=== PATIENT | female | born 1990 | race Asian ===

== ENCOUNTER 2024-05-13 07:34 | Inpatient (IN) ==
[2024-05-13] MEDS ORDERED: LIDOCAINE 1% LOCAL 20 ML VIAL INFIL PRN (09:03)
[2024-05-13] MEDS ORDERED: CALCIUM CARBONATE 500 MG CHEWABLE TAB PO PRN (09:03)
--- NOTE | 2024-05-13 09:41 | History & Physical Report ---
Date of Service May 13, 2024 Assessment & Plan (1) Encounter for induction of labor: (2) Post-dates : Plan admit, iv, labs, start pit. fhts categ 1. Admission and Anticipated Discharge Date Admission Date: May 13, 2024 History of Present Illness Chief Complaint: planned induction Primary Care Provider: Katerin Bolanos MD 33yo at 40+wks ega for planned induction of labor due to postdates. No rom, no vb. +FM. No ctx. PNC c/b 1. postdates 2. cx polyp noted at NOB PNL rh pos, ri, gbs neg OBH: g1 GYNH: nl paps, no stds. Allergies Allergy/AdvReac Type Severity Reaction Status Date / Time No Known Allergies Allergy Verified 05/09/24 10:39 Home Medications Medication Instructions Recorded Confirmed Type cholecalciferol (vitamin D3) 25 25 mcg PO DAILY 09/21/23 05/09/24 History mcg (1,000 unit) tablet vit 168-iron 27 mg-folic 1 cap PO DAILY #30 caps 10/09/23 05/09/24 Rx acid 800 mcg-omega3 235 mg capsule (One-A-Day -1) calcium carbonate (Calcium 600) 600 mg PO DAILY 03/13/24 05/09/24 History ferrous sulfate 325 mg (65 mg 325 mg PO DAILY 03/13/24 05/09/24 History iron) tablet (iron) inulin 2 gram chewable tablet 2 g PO DAILY 03/13/24 05/09/24 History (Fiber Gummies) polyethylene glycol 3350 17 17 g PO DAILY PRN Constipation 03/13/24 05/09/24 History gram/dose oral powder (Miralax) Breast Pump #1 ea 05/02/24 05/09/24 Rx Patient History Medical History Constipation Family History (Updated 09/21/23 @ 09:55 by Casie English) Grandmother (Maternal) Diabetes Hypertension Dyslipidemia Social History Smoking Status: Never smoker Second Hand Exposure: No; Do You Dip or Chew Tobacco: No; Hx Alcohol Use: No Hx Substance Use: No Preferred Language: Indonesian Communication Ability: Effective 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 current occupational status: employed current occupation: scientist electronics Feels Safe at Home: Yes Assistive Devices: None Review of Systems as per Subjective / HPI Physical Exam Constitutional: WD/WN, vitals as above Respiratory: normal respiratory effort, lungs clear to auscultation Cardiovascular: Rate/Rhythm: regular rate and regular rhythm Gastrointestinal (Abdomen): soft gravid nt efw 7-8# Musculoskeletal: no edema nontender calves Neurologic: grossly normal Psychiatric: A+Ox3, euthymic affect Genitourinary: Manual OB Exam: + cervical dilation 5 cm, + cervical effacement 60%, + station -2 and + amniotic fluid (arom) clear OB Exam Monitor Tracing: + external FHT monitor used, + external uterine monitor used (irreg), + category I and + normal FHT variability Results & Data Vital Signs (Past 12 Hours) Vital Signs Temp Pulse Resp BP 05/13/24 08:04 97.9 F 90 18 108/74 05/13/24 07:48 97.9 F 90 18 108/74 Coding Level of Care Code None Diagnoses Encounter for induction of labor Z34.90 Post-dates O48.0
[2024-05-13] MEDS: LACTATED RINGER'S 1,000 ML IV PRN (09:42)
[2024-05-13 09:44] LABS: Hematocrit (blood only) 35.1 % (37.0-47.0); Hemoglobin 11.7 g/dl (12.0-16.0); Mean Corpuscular Hemoglobin 31.8 pg (25.0-34.0); Mean Corpuscular Hgb Conc 33.3 g/dL (32.0-36.0); Mean Corpuscular Volume 95.4 fL (80.0-100.0); Mean Platelet Volume 10.8 fL (9.4-12.4); Platelet Count 143 K/uL (130-400); RDW Coefficient of Variation 14.2 % (11.5-14.5); RDW Standard Deviation 49.7 fL (36.4-46.3); Red Blood Count 3.68 M/uL (4.20-5.40); White Blood Count 6.83 K/ul (4.8-10.8)
[2024-05-13] MEDS ORDERED: fentaNYL citrate PF 100 MCG/2 ML VIAL EPI PRN (10:15)
[2024-05-13] MEDS ORDERED: ONDANSETRON INJ 2 MG/ML 2 ML VIAL IV PRN (10:15)
[2024-05-13] MEDS ORDERED: NALOXONE HCL 0.4 MG/1 ML VIAL/CARP IV PRN (10:15)
[2024-05-13] MEDS ORDERED: SODIUM CHLORIDE 0.9% PF INJ 10 ML VIAL EPI PRN (10:15)
[2024-05-13] MEDS ORDERED: ePHEDrine sulfate 50 MG/ML AMP IV PRN (10:15)
[2024-05-13] MEDS ORDERED: NALBUPHINE HCL 5 MG in SYRINGE 0 ML IV PRN (10:15)
[2024-05-13] MEDS ORDERED: LIDOCAINE 2% MPF LOCAL 5 ML VIAL EPI PRN (10:15)
[2024-05-13] MEDS ORDERED: NALOXONE HCL 1 MG in SODIUM CHLORIDE 0.9% 1,000 ML IV PRN (10:15)
[2024-05-13] MEDS ORDERED: ROPIVACAINE 0.5% PF 5 MG/ML 20 ML VIAL EPI PRN (10:15)
[2024-05-13] MEDS ORDERED: diphenhydrAMINE 50 MG/ML VIAL IV PRN (10:15)
[2024-05-13] MEDS ORDERED: BUPIVACAINE 0.25% PF 30 ML VIAL EPI PRN (10:15)
--- NOTE | 2024-05-13 10:16 | Anesthesiology Consultation ---
Date of Service May 13, 2024 Assessment & Plan (1) Encounter for pre-operative examination: Chart Review Chart Review: Patient NOT seen in Pre Admission Testing and Acceptable Risk for Labor Epidural Consults Requested none History Height/Weight Height: 5 ft 7 in Weight: 80.931 kg Allergies Allergy/AdvReac Type Severity Reaction Status Date / Time No Known Allergies Allergy Verified 05/09/24 10:39 Medications Home Medications Medication Instructions Recorded Confirmed Last Taken cholecalciferol (vitamin D3) 25 25 mcg PO DAILY 09/21/23 05/09/24 03/12/24 mcg (1,000 unit) tablet vit 168-iron 27 mg-folic 1 cap PO DAILY #30 caps 10/09/23 05/09/24 03/12/24 acid 800 mcg-omega3 235 mg capsule (One-A-Day -1) calcium carbonate (Calcium 600) 600 mg PO DAILY 03/13/24 05/09/24 03/12/24 ferrous sulfate 325 mg (65 mg 325 mg PO DAILY 03/13/24 05/09/24 03/12/24 iron) tablet (iron) inulin 2 gram chewable tablet 2 g PO DAILY 03/13/24 05/09/24 03/12/24 (Fiber Gummies) polyethylene glycol 3350 17 17 g PO DAILY PRN Constipation 03/13/24 05/09/24 Unknown gram/dose oral powder (Miralax) Breast Pump #1 ea 05/02/24 05/09/24 Unknown Active Medications Generic Name Dose Route Start Last Admin Trade Name Freq PRN Reason Stop Dose Admin Lactated Ringer's 1,000 mls @ 125 mls/hr 05/13/24 09:03 05/13/24 09:42 Lr IV 05/15/24 09:02 999 mls/hr .Q8H PRN Administration L&D Protocol Protocol Past Medical History Medical History (Updated 05/13/24 @ 10:16 by Russell Argueta MD) Encounter for pre-operative examination Post-dates Exercise / Class Metabolic Activity II 4-5 Yardwork/Stairs/Walk up hill Past Family History Family History Grandmother (Maternal) Diabetes Hypertension Dyslipidemia Social History Smoking Status: Never smoker Do You Dip or Chew Tobacco: No Hx Alcohol Use: No Hx Substance Use: No substance use type: does not use Physical Exam Vital Signs Last Vital Signs Temp 36.6 C 05/13/24 08:04 Pulse 100 H 05/13/24 10:34 Resp 18 05/13/24 08:04 BP 125/74 05/13/24 10:34 Pulse Ox 96 05/13/24 10:33 Testing Laboratory Results 05/13/24 09:18
[2024-05-13] MEDS: BUPIVACAINE 0.25% PF 30 ML VIAL ONE (10:33)
[2024-05-13] MEDS: fentaNYL citrate PF 100 MCG/2 ML VIAL ONE (10:37)
[2024-05-13] MEDS: LIDOCAINE 2%/EPINEPHRINE 1:200,000 20 ML PF ONE (10:37)
[2024-05-13] MEDS: fentANYL 2 MCG/ML BUPIVacaine 0.125%-NSS 100ML BAG EPI PRN (10:41)
[2024-05-13] MEDS: OXYTOCIN 30 UNITS/NSS 30 UNITS/500 ML BAG IV PRN ×2 (11:22→20:13)
[2024-05-13] MEDS: BUPIVACAINE 0.25% PF 30 ML VIAL EPI STA (15:21)
[2024-05-13] MEDS: SODIUM CHLORIDE 0.9% PF INJ 10 ML VIAL ONE (15:21)
[2024-05-13] MEDS: ePHEDrine sulfate 50 MG/ML AMP ONE (15:21)
[2024-05-13] MEDS: fentANYL 2 MCG/ML BUPIVacaine 0.125%-NSS 100ML BAG ONE (15:21)
[2024-05-13] MEDS: LIDOCAINE 2%/EPINEPHRINE 1:200,000 20 ML PF EPI STA (15:22)
[2024-05-13] MEDS: fentaNYL citrate PF 100 MCG/2 ML VIAL EPI STA (15:22)
[2024-05-13] MEDS: SODIUM CHLORIDE 0.9% PF INJ 10 ML VIAL EPI STA (15:23)
[2024-05-13] MEDS ORDERED: AMPICILLIN SOD 1 GM VIAL IV ONE (16:28)
--- NOTE | 2024-05-13 16:32 | Labor Progress Brief Note ---
Date of Service May 13, 2024 Subjective pt with epidural. Assessment & Plan (1) Encounter for induction of labor: (2) 40 weeks gestation of : (3) Maternal fever during labor: Plan: temp elevated and fhts as noted. will give tylenol now and plan amp. unclear if true intraamniotic infection, no odor of fluid and arom only about 7hr ago. will continue to monitor. Plan will c/w pit. fhts noted. Admission and Anticipated Discharge Date Admission Date: May 13, 2024 Physical Exam Constitutional: WD/WN, vitals as above Genitourinary: Manual OB Exam: + cervical dilation (8.5cm per nurse) OB Exam Monitor Tracing: + external FHT monitor used (160-165), + external uterine monitor used (q2, pit at 5. ) and + category I (minimal variability. ) no foul odor of fluid noted. Results & Data Vital Signs (Past 12 Hours) Vital Signs Temp Pulse Resp BP Pulse Ox 05/13/24 16:28 111 H 112/56 L 99 05/13/24 16:23 109 H 99 05/13/24 16:21 100.4 F H 05/13/24 16:19 110 H 114/57 L 05/13/24 16:18 110 H 99 05/13/24 16:13 103 H 97 05/13/24 16:11 109 H 89 L 05/13/24 16:08 106 H 128/85 98 05/13/24 16:03 111 H 100 05/13/24 15:58 115 H 108/59 L 100 05/13/24 15:53 110 H 100 05/13/24 15:49 101 H 116/58 L 05/13/24 15:48 103 H 100 05/13/24 15:43 113 H 99 05/13/24 15:38 98 H 97 05/13/24 15:37 100.0 F H 98 H 19 119/71 05/13/24 15:33 107 H 95 05/13/24 15:28 102 H 98 05/13/24 15:27 98 H 121/66 05/13/24 15:23 104 H 98 05/13/24 15:18 99 H 98 05/13/24 15:17 95 H 118/70 05/13/24 15:13 89 99 05/13/24 15:08 98 H 98 05/13/24 15:07 96 H 117/70 05/13/24 15:03 90 98 05/13/24 14:59 104 H 113/67 05/13/24 14:58 101 H 98 05/13/24 14:53 94 H 99 05/13/24 14:51 99 H 91 05/13/24 14:48 94 H 100 05/13/24 14:47 90 118/72 05/13/24 14:43 89 99 05/13/24 14:38 89 100 05/13/24 14:37 86 121/65 05/13/24 14:33 95 H 100 05/13/24 14:28 88 99 05/13/24 14:25 104 H 93 05/13/24 14:23 103 H 97 05/13/24 14:18 101 H 99 05/13/24 14:13 79 99 05/13/24 14:08 77 99 05/13/24 14:07 73 111/65 05/13/24 14:03 77 98 05/13/24 13:58 78 98 05/13/24 13:57 76 113/68 05/13/24 13:53 79 99 05/13/24 13:48 86 109/67 99 05/13/24 13:43 75 99 05/13/24 13:38 99 05/13/24 13:38 78 05/13/24 13:38 77 100/59 L 05/13/24 13:33 77 98 05/13/24 13:28 73 100 05/13/24 13:27 70 104/59 L 05/13/24 13:23 74 99 05/13/24 13:18 72 99 05/13/24 13:17 69 100/57 L 05/13/24 13:13 72 98 05/13/24 13:09 76 97/54 L 05/13/24 13:08 84 97 05/13/24 13:03 72 97 05/13/24 12:58 97 05/13/24 12:58 72 05/13/24 12:58 71 110/60 05/13/24 12:53 73 97 05/13/24 12:48 74 98 05/13/24 12:47 68 108/56 L 05/13/24 12:43 71 97 05/13/24 12:38 71 96 05/13/24 12:37 69 112/66 05/13/24 12:33 77 97 05/13/24 12:30 16 05/13/24 12:30 98.2 F 16 05/13/24 12:28 72 95 05/13/24 12:27 71 108/62 05/13/24 12:23 74 97 05/13/24 12:18 71 98 05/13/24 12:13 83 98 05/13/24 12:08 72 96 05/13/24 12:07 66 98/56 L 05/13/24 12:03 72 98 05/13/24 11:58 97 05/13/24 11:58 71 05/13/24 11:58 72 106/64 05/13/24 11:53 73 97 05/13/24 11:48 77 97 05/13/24 11:47 80 106/60 05/13/24 11:43 71 97 05/13/24 11:38 79 98/55 L 97 05/13/24 11:33 72 97 05/13/24 11:28 82 98 05/13/24 11:27 74 103/60 05/13/24 11:23 82 97 05/13/24 11:18 85 96 05/13/24 11:16 74 101/59 L 05/13/24 11:13 85 97 05/13/24 11:11 71 100/58 L 05/13/24 11:08 76 96 05/13/24 11:07 74 100/58 L 05/13/24 11:03 78 95 05/13/24 11:02 79 104/57 L 05/13/24 10:58 85 96 05/13/24 10:55 81 116/59 L 05/13/24 10:53 91 H 114/59 L 97 05/13/24 10:51 78 113/64 05/13/24 10:49 83 116/64 05/13/24 10:48 82 96 05/13/24 10:47 88 108/62 05/13/24 10:45 83 117/68 05/13/24 10:43 84 112/68 97 05/13/24 10:41 88 130/71 05/13/24 10:39 87 119/70 05/13/24 10:38 82 96 05/13/24 10:37 93 H 119/70 07/22/24 10:34 100 H 125/74 05/13/24 10:33 100 H 96 05/13/24 10:28 91 H 98 05/13/24 10:23 85 97 05/13/24 10:18 79 97 05/13/24 10:13 82 97 05/13/24 10:08 87 97 05/13/24 08:04 97.9 F 90 18 108/74 05/13/24 07:48 97.9 F 90 18 108/74 Coding Level of Care Code None Diagnoses Encounter for induction of labor Z34.90 40 weeks gestation of Z3A.40 Maternal fever during labor O75.2
[2024-05-13] MEDS: ACETAMINOPHEN 500 MG TAB PO STA (16:37)
[2024-05-13] MEDS: AMPICILLIN 2,000 MG in SODIUM CHLOR 0.9% MINI-B 100 ML IV STA (16:51)
--- NOTE | 2024-05-13 16:57 | Labor Progress Brief Note ---
Date of Service May 13, 2024 Subjective pt comfortable. discussed fever in labor and goals to have pt deliver Assessment & Plan (1) 40 weeks gestation of : (2) Encounter for induction of labor: (3) Maternal fever during labor: Plan will plan 2nd stage soon, empty bladder and then attempt pushing. at first can feel small lip but exam during ctx and cephalic comes down to +2 station at least. did d/w pt and partner goals with maternal fever, ie. delivery. they ask about possible nicu need but that is unpredictable. currently minimal variability despite ivf bolus but categ 1. amp infusing. Admission and Anticipated Discharge Date Admission Date: May 13, 2024 Physical Exam Constitutional: WD/WN, vitals as above Genitourinary: Manual OB Exam: + cervical dilation 10 cm (with ctx), + cervical effacement 100% and + station + 2 (+3 with ctx) OB Exam Monitor Tracing: + external FHT monitor used, + external uterine monitor used (q2 pit at 5) and + category I Results & Data Vital Signs (Past 12 Hours) Vital Signs Temp Pulse Resp BP Pulse Ox 05/13/24 16:48 99 05/13/24 16:48 110 H 05/13/24 16:48 108 H 109/55 L 05/13/24 16:43 104 H 100 05/13/24 16:38 105 H 99 05/13/24 16:37 110 H 102/56 L 05/13/24 16:33 111 H 99 05/13/24 16:28 111 H 112/56 L 99 05/13/24 16:23 109 H 99 05/13/24 16:21 100.4 F H 05/13/24 16:19 110 H 114/57 L 05/13/24 16:18 110 H 99 05/13/24 16:13 103 H 97 05/13/24 16:11 109 H 89 L 05/13/24 16:08 106 H 128/85 98 05/13/24 16:03 111 H 100 05/13/24 15:58 115 H 108/59 L 100 05/13/24 15:53 110 H 100 05/13/24 15:49 101 H 116/58 L 05/13/24 15:48 103 H 100 05/13/24 15:43 113 H 99 05/13/24 15:38 98 H 97 05/13/24 15:37 100.0 F H 98 H 19 119/71 05/13/24 15:33 107 H 95 05/13/24 15:28 102 H 98 05/13/24 15:27 98 H 121/66 05/13/24 15:23 104 H 98 05/13/24 15:18 99 H 98 05/13/24 15:17 95 H 118/70 05/13/24 15:13 89 99 05/13/24 15:08 98 H 98 05/13/24 15:07 96 H 117/70 05/13/24 15:03 90 98 05/13/24 14:59 104 H 113/67 05/13/24 14:58 101 H 98 05/13/24 14:53 94 H 99 05/13/24 14:51 99 H 91 05/13/24 14:48 94 H 100 05/13/24 14:47 90 118/72 05/13/24 14:43 89 99 05/13/24 14:38 89 100 05/13/24 14:37 86 121/65 05/13/24 14:33 95 H 100 05/13/24 14:28 88 99 05/13/24 14:25 104 H 93 05/13/24 14:23 103 H 97 05/13/24 14:18 101 H 99 05/13/24 14:13 79 99 05/13/24 14:08 77 99 05/13/24 14:07 73 111/65 05/13/24 14:03 77 98 05/13/24 13:58 78 98 05/13/24 13:57 76 113/68 05/13/24 13:53 79 99 05/13/24 13:48 86 109/67 99 05/13/24 13:43 75 99 05/13/24 13:38 99 05/13/24 13:38 78 05/13/24 13:38 77 100/59 L 05/13/24 13:33 77 98 05/13/24 13:28 73 100 05/13/24 13:27 70 104/59 L 05/13/24 13:23 74 99 05/13/24 13:18 72 99 05/13/24 13:17 69 100/57 L 05/13/24 13:13 72 98 05/13/24 13:09 76 97/54 L 05/13/24 13:08 84 97 05/13/24 13:03 72 97 05/13/24 12:58 97 05/13/24 12:58 72 05/13/24 12:58 71 110/60 05/13/24 12:53 73 97 05/13/24 12:48 74 98 05/13/24 12:47 68 108/56 L 05/13/24 12:43 71 97 05/13/24 12:38 71 96 05/13/24 12:37 69 112/66 05/13/24 12:33 77 97 05/13/24 12:30 16 05/13/24 12:30 98.2 F 16 05/13/24 12:28 72 95 05/13/24 12:27 71 108/62 05/13/24 12:23 74 97 05/13/24 12:18 71 98 05/13/24 12:13 83 98 05/13/24 12:08 72 96 05/13/24 12:07 66 98/56 L 05/13/24 12:03 72 98 05/13/24 11:58 97 05/13/24 11:58 71 05/13/24 11:58 72 106/64 05/13/24 11:53 73 97 05/13/24 11:48 77 97 05/13/24 11:47 80 106/60 05/13/24 11:43 71 97 05/13/24 11:38 79 98/55 L 97 05/13/24 11:33 72 97 05/13/24 11:28 82 98 05/13/24 11:27 74 103/60 05/13/24 11:23 82 97 05/13/24 11:18 85 96 05/13/24 11:16 74 101/59 L 05/13/24 11:13 85 97 05/13/24 11:11 71 100/58 L 05/13/24 11:08 76 96 05/13/24 11:07 74 100/58 L 05/13/24 11:03 78 95 05/13/24 11:02 79 104/57 L 05/13/24 10:58 85 96 05/13/24 10:55 81 116/59 L 05/13/24 10:53 91 H 114/59 L 97 05/13/24 10:51 78 113/64 05/13/24 10:49 83 116/64 05/13/24 10:48 82 96 05/13/24 10:47 88 108/62 05/13/24 10:45 83 117/68 05/13/24 10:43 84 112/68 97 05/13/24 10:41 88 130/71 05/13/24 10:39 87 119/70 05/13/24 10:38 82 96 05/13/24 10:37 93 H 119/70 05/13/24 10:34 100 H 125/74 05/13/24 10:33 100 H 96 05/13/24 10:28 91 H 98 05/13/24 10:23 85 97 05/13/24 10:18 79 97 05/13/24 10:13 82 97 05/13/24 10:08 87 97 05/13/24 08:04 97.9 F 90 18 108/74 05/13/24 07:48 97.9 F 90 18 108/74 Coding Level of Care Code None Diagnoses 40 weeks gestation of Z3A.40 Encounter for induction of labor Z34.90 Maternal fever during labor O75.2
[2024-05-13] MEDS ORDERED: GENTAMICIN CONSULT ACTIVE PRN (17:30)
[2024-05-13] MEDS: GENTAMICIN SULFATE 400 MG in DEXTROSE 5% 100 ML IV SCH (18:12)
--- NOTE | 2024-05-13 18:38 | Labor Progress Brief Note ---
Date of Service May 13, 2024 Subjective pushing effectively Assessment & Plan (1) 40 weeks gestation of : (2) Encounter for induction of labor: (3) Maternal fever during labor: Plan: added gent. unlikely chorio but treating as presumed. Plan making good progress in 2nd stage. nursery aware of tachy and maternal temp to relay to peds. Admission and Anticipated Discharge Date Admission Date: May 13, 2024 Physical Exam Constitutional: WD/WN, vitals as above Genitourinary: Manual OB Exam: + cervical dilation 10 cm, + cervical effacement 100% and + station + 3 OB Exam Monitor Tracing: + external FHT monitor used (baseline 175, variability normal ), + external uterine monitor used (q2, decreased pit to 2), + category I (+scalp stim response) and + normal FHT variability Results & Data Vital Signs (Past 12 Hours) Vital Signs Temp Pulse Resp BP Pulse Ox 05/13/24 18:30 145 H 96 05/13/24 18:27 166 H 105/64 05/13/24 18:25 145 H 97 05/13/24 18:23 146 H 81 L 05/13/24 18:20 136 H 93 05/13/24 18:15 136 H 96 05/13/24 18:10 148 H 87 L 05/13/24 18:08 129 H 108/53 L 05/13/24 18:05 132 H 79 L 05/13/24 18:04 169 H 83 L 05/13/24 18:00 142 H 89 L 05/13/24 17:59 137 H 115/56 L 05/13/24 17:58 181 H 184/107 H 05/13/24 17:57 144 H 88 L 05/13/24 17:55 133 H 89 L 05/13/24 17:51 143 H 87 L 05/13/24 17:49 132 H 93 05/13/24 17:47 146 H 107/58 L 05/13/24 17:44 125 H 93 05/13/24 17:38 139 H 106/53 L 93 05/13/24 17:35 138 H 82 L 05/13/24 17:33 124 H 93 05/13/24 17:29 137 H 87 L 05/13/24 17:28 91 05/13/24 17:28 133 H 05/13/24 17:28 131 H 104/50 L 05/13/24 17:25 22 05/13/24 17:25 101.8 F H 22 05/13/24 17:23 132 H 94 05/13/24 17:18 139 H 95 05/13/24 17:17 118 H 106/51 L 05/13/24 17:16 139 H 83 L 05/13/24 17:13 127 H 97 05/13/24 17:11 127 H 94 05/13/24 17:08 121 H 97 05/13/24 17:07 116 H 127/60 05/13/24 17:03 125 H 96 05/13/24 16:58 124 H 99 05/13/24 16:57 112 H 111/58 L 05/13/24 16:53 114 H 99 05/13/24 16:48 99 05/13/24 16:48 110 H 05/13/24 16:48 108 H 109/55 L 05/13/24 16:43 104 H 100 05/13/24 16:38 105 H 99 05/13/24 16:37 110 H 102/56 L 05/13/24 16:33 111 H 99 05/13/24 16:28 111 H 112/56 L 99 05/13/24 16:23 109 H 99 05/13/24 16:21 100.4 F H 05/13/24 16:19 110 H 114/57 L 05/13/24 16:18 110 H 99 05/13/24 16:13 103 H 97 05/13/24 16:11 109 H 89 L 05/13/24 16:08 106 H 128/85 98 05/13/24 16:03 111 H 100 05/13/24 15:58 115 H 108/59 L 100 05/13/24 15:53 110 H 100 05/13/24 15:49 101 H 116/58 L 05/13/24 15:48 103 H 100 05/13/24 15:43 113 H 99 05/13/24 15:38 98 H 97 05/13/24 15:37 100.0 F H 98 H 19 119/71 05/13/24 15:33 107 H 95 05/13/24 15:28 102 H 98 05/13/24 15:27 98 H 121/66 05/13/24 15:23 104 H 98 05/13/24 15:18 99 H 98 05/13/24 15:17 95 H 118/70 05/13/24 15:13 89 99 05/13/24 15:08 98 H 98 05/13/24 15:07 96 H 117/70 05/13/24 15:03 90 98 05/13/24 14:59 104 H 113/67 05/13/24 14:58 101 H 98 05/13/24 14:53 94 H 99 05/13/24 14:51 99 H 91 05/13/24 14:48 94 H 100 05/13/24 14:47 90 118/72 05/13/24 14:43 89 99 05/13/24 14:38 89 100 05/13/24 14:37 86 121/65 05/13/24 14:33 95 H 100 05/13/24 14:28 88 99 05/13/24 14:25 104 H 93 05/13/24 14:23 103 H 97 05/13/24 14:18 101 H 99 05/13/24 14:13 79 99 05/13/24 14:08 77 99 05/13/24 14:07 73 111/65 05/13/24 14:03 77 98 05/13/24 13:58 78 98 05/13/24 13:57 76 113/68 05/13/24 13:53 79 99 05/13/24 13:48 86 109/67 99 05/13/24 13:43 75 99 05/13/24 13:38 99 05/13/24 13:38 78 05/13/24 13:38 77 100/59 L 05/13/24 13:33 77 98 05/13/24 13:28 73 100 05/13/24 13:27 70 104/59 L 05/13/24 13:23 74 99 05/13/24 13:18 72 99 05/13/24 13:17 69 100/57 L 05/13/24 13:13 72 98 05/13/24 13:09 76 97/54 L 05/13/24 13:08 84 97 05/13/24 13:03 72 97 05/13/24 12:58 97 05/13/24 12:58 72 05/13/24 12:58 71 110/60 05/13/24 12:53 73 97 05/13/24 12:48 74 98 05/13/24 12:47 68 108/56 L 05/13/24 12:43 71 97 05/13/24 12:38 71 96 05/13/24 12:37 69 112/66 05/13/24 12:33 77 97 05/13/24 12:30 16 05/13/24 12:30 98.2 F 16 05/13/24 12:28 72 95 05/13/24 12:27 71 108/62 05/13/24 12:23 74 97 05/13/24 12:18 71 98 05/13/24 12:13 83 98 05/13/24 12:08 72 96 05/13/24 12:07 66 98/56 L 05/13/24 12:03 72 98 05/13/24 11:58 97 05/13/24 11:58 71 05/13/24 11:58 72 106/64 05/13/24 11:53 73 97 05/13/24 11:48 77 97 05/13/24 11:47 80 106/60 05/13/24 11:43 71 97 05/13/24 11:38 79 98/55 L 97 05/13/24 11:33 72 97 05/13/24 11:28 82 98 05/13/24 11:27 74 103/60 05/13/24 11:23 82 97 05/13/24 11:18 85 96 05/13/24 11:16 74 101/59 L 05/13/24 11:13 85 97 05/13/24 11:11 71 100/58 L 05/13/24 11:08 76 96 05/13/24 11:07 74 100/58 L 05/13/24 11:03 78 95 05/13/24 11:02 79 104/57 L 05/13/24 10:58 85 96 05/13/24 10:55 81 116/59 L 05/13/24 10:53 91 H 114/59 L 97 05/13/24 10:51 78 113/64 05/13/24 10:49 83 116/64 05/13/24 10:48 82 96 05/13/24 10:47 88 108/62 05/13/24 10:45 83 117/68 05/13/24 10:43 84 112/68 97 07/22/24 10:41 88 130/71 05/13/24 10:39 87 119/70 05/13/24 10:38 82 96 05/13/24 10:37 93 H 119/70 05/13/24 10:34 100 H 125/74 05/13/24 10:33 100 H 96 05/13/24 10:28 91 H 98 05/13/24 10:23 85 97 05/13/24 10:18 79 97 05/13/24 10:13 82 97 05/13/24 10:08 87 97 05/13/24 08:04 97.9 F 90 18 108/74 05/13/24 07:48 97.9 F 90 18 108/74 Coding Level of Care Code None Diagnoses 40 weeks gestation of Z3A.40 Encounter for induction of labor Z34.90 Maternal fever during labor O75.2
[2024-05-13] MEDS ORDERED: SODIUM CHLORIDE 0.9% 250 ML IV PRN (20:12)
--- NOTE | 2024-05-13 20:43 | Delivery Summary ---
Vaginal Delivery Summary Date of Service May 13, 2024 Vaginal Delivery Summary VAVD and 3rd Degree LAC (partial) The patient dilated to complete and was pushing for close to 3hr, getting exhausted and asking for vacuum assistance. Cephalic was with pushing. C/C/+3-+4. Bladder attempted to be drained but could not pass catheter. Vacuum applied and pt pushed to deliver a viable female Apgars 8 and 9 via VAVD over partial 3rd degree perineal laceration. Cephalic delivered as outlet vacuum over one ctx and no pop offs. Mouth and nose bulb suctioned at perineum. Body cord noted and delivered through. Shoulders and body delivered with ease. was not vigorous at and after 30 seconds of life cord was clamped and to maternal abdomen where the cord was then doubly clamped and cut. Partical 3rd degree laceration with multiple vaginal tears noted and sphincter reinforced with 2-0 vicryl and then vaginal lacerations and perineal laceration repaired in layers with 3-0 vicryl. Placenta not delivered spontaneously and at 22min manual extraction took place and uterus swept x 1 with no evidence of retained placenta. This resulted in some tearing of tissue at repair site so additional suture needed to reapproximate left vaginal tears and perineal te aring. This was done with 3-0 vicryl. During this time pt felt lightheaded and bp notably low, pulse elevated and pulse ox normal. Stat H/H ordered and ivf bolus started. Epidural stopped. T&C x 2units ordered as blood loss appeared significant and unstable vs. Placenta sent as specimen. Cord blood obtained. Hemostasis achieved with dilute pitocin and uterine massage and drainage of the bladder for approximately 20 cc under sterile conditions. Cervix and sulci intact. QBL 1090 cc. Mother and baby stable in recovery. VS are improving and labs pending. Reviewed circumstances of pph with pt and partner. She is asking for bubble tea. She feels somewhat better. Will continue to monitor. addendum: hgb 11.1, bp improved and pulse decreased. [facility] Vaginal Delivery Charge Delivery Type Details: VAVD and 3rd Degree LAC (partial)
[2024-05-13] MEDS ORDERED: HYDROCORTISONE ACETATE 25 MG SUPP PR PRN (21:09)
[2024-05-13] MEDS ORDERED: OXYTOCIN 30 UNITS/NSS 30 UNITS/500 ML BAG IV PRN (21:09)
[2024-05-13] MEDS ORDERED: POLYETHYLENE (MIRALAX) 17 GM PACK PO PRN (21:09)
[2024-05-13] MEDS ORDERED: DIPHTHER/TETAN/PERTUS Vaccine (Tdap, Adol/Adult) 0.5mL IM ONE (21:09)
[2024-05-13] MEDS: miSOPROStoL 200 MCG TAB ONE (21:13)
[2024-05-13] MEDS: OXYTOCIN 20 UNITS/LR 1,002 ML IV SCH (21:24)
[2024-05-13] MEDS: IBUPROFEN 600 MG TAB PO PRN (22:00)
[2024-05-14] MEDS: oxyCODONE/ACETAMINOPHEN 5mg/325mg TAB PO PRN (02:08)
[2024-05-14 03:16] LABS: Hematocrit (blood only) 25.6 % (37.0-47.0); Hemoglobin 8.7 g/dl (12.0-16.0)
[2024-05-14] MEDS: DOCUSATE SODIUM 100 MG CAP PO SCH (08:01)
[2024-05-14] MEDS: PRENATAL VITAMIN 1 TAB PO SCH (08:01)
--- NOTE | 2024-05-14 08:17 | Obstetrical Progress Note ---
Date of Service May 14, 2024 Assessment & Plan (1) examination following vaginal delivery: (2) hemorrhage: Plan stable, vss today. hgb noted. no evidence of ongoing bleeding with great urine output. baca removed, apologized for miscommunication but need her to walk and try to void spont, not rely on catheter. cont with diet, will meet with to discuss pumping. of importance reviewed with pt needs to try to move and get up and see how she does. not an option to lay in bed and get blood clots and pneumonia and not care for her baby as she will go home tomorrow. stressed that her hgb is not low enough to require transfusion and she says she doesn't want that anyway. she will need to build that back over time with po iron which she says she is sensitive to and so can just start extra iron once at home, slowFE. She is encouraged to move and try and see how she does. Spouse present and aware, nurse aware. Needs to start by sitting for her breakfast. Again she says she feels weak and aware that will be a slow process to improve but cannot limit her trying to care for herself and baby. catherine, ri. Day #:: 1 Subjective Voiding: baca catheter in place Diet Tolerance:: regular diet Lochia:: Small Feeding Type:: bottle feeding pt has history of syncope early pp, had low bp and tachy and then ultimately was not able to void.due to miscommunication a baca was placed, rather than intermittent cath which is what i intended. she is concerned about feeling weak. planning to bottle feed at night and try to pump during day. has not tried that yet. h/h overnight 8.5 which is consistent with QBL and starting hgb. Spouse by bedside. She had pain meds overnight and worried about after using this. Constitutional: + as per Subjective / HPI Physical Exam Constitutional WD/WN, vitals as above Respiratory normal respiratory effort, lungs clear to auscultation Cardiovascular Rate/Rhythm: regular rate and regular rhythm Gastrointestinal (Abdomen) Inspection/Auscultation: abdomen normal to inspection Percussion/Palpation: abdomen soft Fundus firm 2cm down, nt Musculoskeletal nt calves no edema Neurologic grossly normal Psychiatric A+Ox3, euthymic affect Results & Data Vital Signs (Past 12 Hours) Vital Signs Temp Pulse Pulse Resp BP BP Pulse Ox 05/14/24 04:10 97.5 F L 101 H 18 104/68 98 05/14/24 01:53 97.7 F 93/60 L 97 05/13/24 23:06 98.6 F 102 H 14 92/63 L 98 05/13/24 22:30 117 H 99 05/13/24 22:28 116 H 92/59 L 05/13/24 22:25 123 H 99 05/13/24 22:20 124 H 99 05/13/24 22:19 121 H 94/57 L 05/13/24 22:15 124 H 99 05/13/24 22:10 124 H 100 05/13/24 22:09 118 H 101/67 05/13/24 22:05 120 H 100 05/13/24 22:00 121 H 100 05/13/24 21:58 123 H 95/73 L 05/13/24 21:55 118 H 100 05/13/24 21:50 132 H 100 05/13/24 21:49 125 H 91/65 L 05/13/24 21:45 118 H 100 05/13/24 21:40 119 H 100 05/13/24 21:39 117 H 103/71 05/13/24 21:35 125 H 100 05/13/24 21:30 116 H 99 05/13/24 21:27 122 H 93/56 L 05/13/24 21:25 121 H 100 05/13/24 21:22 129 H 87/59 L 05/13/24 21:20 129 H 100 05/13/24 21:17 122 H 88/59 L 05/13/24 21:15 124 H 100 05/13/24 21:12 122 H 85/56 L 05/13/24 21:10 128 H 100 05/13/24 21:07 121 H 90/61 L 05/13/24 21:05 119 H 100 05/13/24 21:02 116 H 91/62 L 05/13/24 21:00 116 H 100 05/13/24 20:57 117 H 94/63 L 05/13/24 20:55 114 H 100 05/13/24 20:52 117 H 93/60 L 05/13/24 20:50 118 H 100 05/13/24 20:45 116 H 94/63 L 100 05/13/24 20:43 116 H 97/62 L 05/13/24 20:41 117 H 96/61 L 05/13/24 20:40 117 H 100 05/13/24 20:39 117 H 97/57 L 05/13/24 20:37 118 H 94/54 L 05/13/24 20:35 100 05/13/24 20:35 123 H 05/13/24 20:35 121 H 87/59 L 05/13/24 20:33 98.6 F 126 H 18 89/61 L 05/13/24 20:31 120 H 86/54 L 05/13/24 20:30 123 H 100 05/13/24 20:29 115 H 89/59 L 05/13/24 20:27 121 H 88/53 L 05/13/24 20:25 118 H 83/55 L 100 05/13/24 20:23 122 H 80/51 L 05/13/24 20:21 118 H 76/50 L 05/13/24 20:20 118 H 100 05/13/24 20:19 123 H 74/50 L 05/13/24 20:17 125 H 70/42 L 05/13/24 20:16 130 H 69/43 L 05/13/24 20:15 129 H 68/47 L 98 05/13/24 20:14 146 H 82 L 05/13/24 20:13 146 H 68/49 L 05/13/24 20:11 68/46 L O2 Del Method 05/14/24 04:10 Room Air 05/14/24 01:53 Room Air 05/13/24 23:06 05/13/24 22:30 05/13/24 22:28 05/13/24 22:25 05/13/24 22:20 05/13/24 22:19 05/13/24 22:15 05/13/24 22:10 05/13/24 22:09 05/13/24 22:05 05/13/24 22:00 05/13/24 21:58 05/13/24 21:55 05/13/24 21:50 05/13/24 21:49 05/13/24 21:45 05/13/24 21:40 05/13/24 21:39 05/13/24 21:35 05/13/24 21:30 05/13/24 21:27 05/13/24 21:25 05/13/24 21:22 05/13/24 21:20 05/13/24 21:17 05/13/24 21:15 05/13/24 21:12 05/13/24 21:10 05/13/24 21:07 05/13/24 21:05 05/13/24 21:02 05/13/24 21:00 05/13/24 20:57 05/13/24 20:55 05/13/24 20:52 05/13/24 20:50 05/13/24 20:45 05/13/24 20:43 05/13/24 20:41 05/13/24 20:40 05/13/24 20:39 05/13/24 20:37 05/13/24 20:35 05/13/24 20:35 05/13/24 20:35 05/13/24 20:33 05/13/24 20:31 05/13/24 20:30 05/13/24 20:29 05/13/24 20:27 05/13/24 20:25 05/13/24 20:23 05/13/24 20:21 05/13/24 20:20 05/13/24 20:19 05/13/24 20:17 05/13/24 20:16 05/13/24 20:15 05/13/24 20:14 05/13/24 20:13 05/13/24 20:11
[2024-05-14] MEDS: BENZOCAINE 20% SPRY 85 APPLN/85 GM CAN EXT PRN (09:37)
--- NOTE | 2024-05-14 10:53 | Anesthesia Procedure Note ---
Date of Service May 14, 2024 Anesthesia Post Epidural Note Vital Signs Vital Signs: Temp Pulse Resp BP Pulse Ox O2 Del Method 97.9 F 100 H 18 106/66 98 Room Air 05/14/24 07:40 05/14/24 07:40 05/14/24 07:40 05/14/24 07:40 05/14/24 07:40 05/14/24 07:40 Notes Mental Status: alert / awake / arousable and participated in evaluation Nausea / Vomiting: adequately controlled Pain: adequately controlled Airway Patency, RR, SpO2: stable & adequate BP & HR: stable & adequate Hydration State: stable & adequate Neuraxial Anesthesia: was administered and sensory block is resolving Anesthetic Complications: no major complications apparent and Pt Satisfied with anesthetic care Epidural: Removed without complications and With tip intact
[2024-05-14] MEDS: ACETAMINOPHEN 325 MG TAB PO PRN (20:12)
[2024-05-14] MEDS: bisacodyL 5 MG TABEC PO SCH (20:12)
--- NOTE | 2024-05-15 08:28 | Obstetrical Progress Note ---
Date of Service May 15, 2024 Assessment & Plan (1) examination following vaginal delivery: Patient with urinary retention; TOV today to determine if able to go home without catheter or if needs to be replaced prior to d/c. Subjective Ambulation: ambulating normally Voiding: baca catheter in place (to be removed for TOV this AM) Passing Gas:: Yes Diet Tolerance:: regular diet Lochia:: Small Feeding Type:: breast feeding Physical Exam Constitutional WD/WN, vitals as above Eyes PERRL, conjunctivae normal, anicteric sclerae Neck normal visual inspection Respiratory normal respiratory effort and able to speak in complete sentences; no respiratory distress and no labored breathing Cardiovascular Rate/Rhythm: regular rate and regular rhythm Extremities: no edema Chest (Breasts) Chest: normal inspection of chest Gastrointestinal (Abdomen) Inspection/Auscultation: abdomen normal to inspection Soft, postgravid Psychiatric A+Ox3, euthymic affect Genitourinary OB Exam Abdomen: + fundal height Fundus: + firm and + relation to umbilicus (fundus just below umbilicus); not tender Results & Data Vital Signs (Past 12 Hours) Vital Signs Temp Pulse Resp BP Pulse Ox O2 Del Method 05/14/24 23:23 98.1 F 102 H 18 103/64 99 Room Air
== END 2024-05-15 17:40 | disposition home or self-care (01) | DRG 768 ==
LOC: 4S1 07:34 → 4E2 23:33